=== PATIENT | female | born 1960 ===

== ENCOUNTER 2017-03-07 23:02 | Emergency (ER) | payer OTHER ==
[2017-03-07 23:02] VITALS: BMI 29.8
[2017-03-07] MEDS ORDERED: Albuterol 0.083% Inhal Sol (2.5 mg/3 mL) UD IH STA (23:54)
[2017-03-07] MEDS ORDERED: Albuterol 0.083% Inhal Sol (2.5 mg/3 mL) UD ONE (23:57)
--- NOTE | 2017-03-08 00:16 | C.PDOC ---
History Of Present Illness 56 y/o female presents to the ER c/o left ear swelling and pain for 2 days. Patient notes 2 days ago her ear was itching and applied Cortisporin ear drops. This morning she woke up with swelling to the face. Patient is on Amoxicillin "for the flu" for 1 week -at the time pt had cough, sore throat, and congestion that has since self resolved. Patient is requesting albuterol treatment, stating she feels her asthma is acting up. Denies chest pain, SOB, ear discharge , sore throat, fever, chills, or abdominal pain. Time Seen by Provider: 03/07/17 23:16 Chief Complaint (Nursing): ENT Problem History Per: Patient, Family History/Exam Limitations: None Onset/Duration Of Symptoms: Days (2) Current Symptoms Are (Timing): Still Present Severity: Mild Past Medical History Reviewed: Historical Data, Nursing Documentation, Vital Signs Vital Signs: Last Vital Signs Temp 98.6 F 03/08/17 00:20 Pulse 80 03/08/17 00:20 Resp 18 03/08/17 00:20 BP 142/82 03/08/17 00:20 Pulse Ox 100 03/08/17 01:28 - Medical History PMH: Asthma, Depression (3 years ago), Gastritis Surgical History: ((+) hysterectomy ) - [facility] Procedures ASSIST VAG HYSTER([facility]) (04/28/14) CYSTOSCOPY NEC (04/28/14) LAPAROSCOP UNILAT SALPINGO-OOPHORECTOMY (04/28/14) Family History: States: Unknown Family Hx - Social History Hx Tobacco Use: Yes Hx Alcohol Use: Yes Hx Substance Use: No - Immunization History Hx Tetanus Toxoid Vaccination: No Hx Influenza Vaccination: No Hx Pneumococcal Vaccination: No Review Of Systems Except As Marked, All Systems Reviewed And Found Negative. Constitutional: Negative for: Fever, Chills ENT: Positive for: Ear Pain (Left ear pain and swelling) Cardiovascular: Negative for: Chest Pain Gastrointestinal: Negative for: Abdominal Pain Physical Exam - Physical Exam Appears: Well, Non-toxic, No Acute Distress Skin: Warm, Dry Head: Atraumatic, Normacephalic, No Other (No mastoid tenderness) Eye(s): bilateral: Normal Inspection Ear(s): Bilateral: Normal, Other (NO exudates or erythema) Nose: Normal Oral Mucosa: Moist Teeth: No Tender To Palpation Gingiva: No Swelling Throat: Normal, No Erythema, No Exudate Neck: Normal ROM, Supple Lymphatic: Other ((+) Preauricular swelling and tenderness) Chest: Symmetrical Cardiovascular: Rhythm Regular Respiratory: Normal Breath Sounds, No Rales, No Rhonchi, No Wheezing Neurological/Psych: Oriented x3, Normal Speech, Normal Cognition, Other (NO focal deficit) ED Course And Treatment O2 Sat by Pulse Oximetry: 100 (RA) Pulse Ox Interpretation: Normal Progress Note: Plans: ALbuterol, Amoxicillin, Motrin, Neb treatment. On reassessment, patient is resting comfortably, and is in no acute distress. Asthma has resolved, no SOB, chest apin, or dyspnea. Patient is afebrile at this time. Patient was instructed to follow up with physician/clinic in 1-2 days for further evaluation. Discussed that swelling secondary to lyphadenapathy , pt is instructed to take abx as prescribed and return to ER if symptoms persist or worsen. CAse discussed with Dr Arredondo, agreed upon plan and treatment. Disposition - Disposition Disposition: HOME/ ROUTINE Disposition Time: 00:13 Condition: STABLE Additional Instructions: Follow up with your primary medical doctor or clinic in 2-5 days for further evaluation. Take medications as prescribed. Return to the emergency department at any time if symptoms persist or worsen. Prescriptions: Amoxicillin/Clavulanate [Augmentin 875 MG-125 MG] 1 tab PO BID #14 tab Ibuprofen [Motrin] 600 mg PO Q6 PRN #20 tab PRN Reason: Pain, Mild (1-3) Instructions: Lymphadenopathy (ED) Forms: [employer] (Luxembourgish) Print Language: BRAZILIAN - Clinical Impression Clinical Impression: Preauricular lymphadenopathy - Scribe Statement The provider has reviewed the documentation as recorded by the Scribe Courtney salinas All medical record entries made by the Katharinaibe were at my direction and personally dictated by me. I have reviewed the chart and agree that the record accurately reflects my personal performance of the history, physical exam, medical decision making, and the department course for this patient. I have also personally directed, reviewed, and agree with the discharge instructions and disposition.
[2017-03-08 00:56] VITALS: BP 142/82; PULSE 80; RESP 18; TEMP 98.6
[2017-03-08 01:21] VITALS: O2SAT 100
== END 2017-03-08 00:20 | disposition home or self-care (01) ==
LOC: C.ER 23:02
DX: R59.0 Localized enlarged lymph nodes (principal)

== ENCOUNTER 2017-07-08 22:47 | Emergency (ER) | payer OTHER ==
[2017-07-08 22:47] VITALS: BMI 29.8
--- NOTE | 2017-07-08 23:22 | C.PDOC ---
History Of Present Illness 56 y/o F c PMHx asthma, arthritis p/w L arm pain x today. Patient was in kitchen when she suddenly lost consciousness and awoke on the floor. She now complains of this pain on the proximal L forearm, sharp, nonradiating, worse with movement or palpation, moderate in severity. She denies headache, neck pain , pain elsewhere, dyspnea, chest pain, palpitations, lightheadedness, bleeding, history of CHF. Time Seen by Provider: 07/08/17 23:06 Chief Complaint (Nursing): Upper Extremity Problem/Injury Past Medical History Vital Signs: Last Vital Signs Temp 98.6 F 07/08/17 22:53 Pulse 68 07/08/17 23:45 Resp 16 07/08/17 23:45 BP 150/88 07/08/17 23:45 Pulse Ox 98 07/08/17 23:45 - Medical History PMH: Arthritis, Asthma, Depression (3 years ago), Gastritis Surgical History: ((+) hysterectomy ) - [facility] Procedures ASSIST VAG HYSTER([facility]) (04/28/14) CYSTOSCOPY NEC (04/28/14) LAPAROSCOP UNILAT SALPINGO-OOPHORECTOMY (04/28/14) Family History: States: Unknown Family Hx - Social History Hx Tobacco Use: Yes Hx Alcohol Use: Yes Hx Substance Use: No - Immunization History Hx Tetanus Toxoid Vaccination: No Hx Influenza Vaccination: No Hx Pneumococcal Vaccination: No Review Of Systems Except As Marked, All Systems Reviewed And Found Negative. Constitutional: Negative for: Fever Respiratory: Negative for: Shortness of Breath Physical Exam - Physical Exam Additional Physical Exam Comments: Constitutional: No acute distress. Head: Normocephalic. Atraumatic. Eyes: PERRL. ENT: Moist mucous membranes. Neck: Supple. No midline tenderness. Cardiovascular: Regular rate. Radial pulse 2+ bilaterally. Chest: No tenderness. Respiratory: Clear to auscultation bilaterally. GI: Soft. Nontender. Nondistended. Back: No midline tenderness. Musculoskeletal: Tenderness to L proximal forearm, ulnar aspect, reproducible with elbow ranging. No tenderness to wrist, hand, humerus, shoulder, clavicle. No hip tenderness. FROM x 4. Skin: No rash. Neurologic: Alert, no focal deficit. ED Course And Treatment - Laboratory Results Result Diagrams: 07/08/17 23:30 07/08/17 23:30 O2 Sat by Pulse Oximetry: 100 Medical Decision Making Medical Decision Making: XR to rule out fracture or dislocation. Toradol IM for pain. I advised the patient further observation for syncope, but patient refused. [place] Syncope Rules negative. Will advise f/u with PMD and to return to ED at any time for any worrisome symptoms. Disposition - Disposition Disposition: HOME/ ROUTINE Disposition Time: 00:01 Condition: STABLE Instructions: Syncope (ED), Contusion in Adults (ED) Forms: [employer] (Swazi) - Clinical Impression Clinical Impression: Contusion, Syncope
[2017-07-08 23:34] LABS: BASO # 0.1 K/uL (0.0-0.2); BASO % 1.1 % (0.0-2.0); EOS # 0.2 K/uL (0.0-0.7); EOS % 2.9 % (0.0-4.0); HEMATOCRIT 36.6 % (34.0-47.0); LYMPH # 2.9 K/uL (1.0-4.3); LYMPH % 35.9 % (20.0-40.0); MEAN CELL VOLUME 93.8 fL (81.0-99.0); MEAN CORPUSCULAR HEMOGLOBIN 31.5 pg (27.0-31.0); MEAN CORPUSCULAR HGB CONC 33.6 g/dL (33.0-37.0); MEAN PLATELET VOLUME 8.5 fL (7.2-11.7); MONO # 0.6 K/uL (0.0-0.8); NRBC % 0.1 % (0.0-2.0); RED CELL DISTRIBUTION WIDTH 13.1 % (11.5-14.5); WHITE BLOOD COUNT 8.1 K/uL (4.8-10.8)
[2017-07-08 23:45] LABS: ALB/GLOB RATIO 1.6 (1.0-2.1); ALKALINE PHOSPHATASE 106 U/L (38-126); ALT/SGPT 41 U/L (9-52); AST/SGOT 25 U/L (14-36); BILIRUBIN,TOTAL 0.5 mg/dL (0.2-1.3); BLOOD UREA NITROGEN 18 mg/dL (7-17); CALCIUM 8.6 mg/dl (8.6-10.4); CARBON DIOXIDE 28 mmol/L (22-30); CHLORIDE 105 mmol/L (98-107); GFR AFRICAN-AMERICAN > 60; GLUCOSE,RANDOM 105 mg/dL (65-105); POTASSIUM 3.9 mmol/L (3.6-5.2); SODIUM 140 mmol/L (132-148); TOTAL PROTEIN 6.9 g/dL (6.3-8.3)
[2017-07-09 00:27] VITALS: BP 150/86; PULSE 70; RESP 20; TEMP 97.9; O2SAT 97
--- NOTE | 2017-07-09 09:13 | RAD ---
PROCEDURE: Radiographs of the Left Forearm HISTORY: fall, arm pain COMPARISON: None available. TECHNIQUE: Frontal and lateral views obtained. FINDINGS: BONES: Bone alignment and mineralization are normal. There is no acute displaced fracture or bone destruction. JOINT SPACES: Unremarkable. OTHER FINDINGS: None. IMPRESSION: No acute fracture or dislocation.
--- NOTE | 2017-07-09 09:13 | RAD ---
PROCEDURE: Radiographs of the left elbow. HISTORY: Fall, elbow pain COMPARISON: No prior. FINDINGS: BONES: Bone alignment and mineralization are normal. There is no acute displaced fracture or bone destruction. JOINTS: Normal. No osteoarthritis. SOFT TISSUES: Normal. JOINT EFFUSION: None. OTHER FINDINGS: None IMPRESSION: No acute fracture or dislocation.
--- NOTE | 2017-07-09 22:12 | CARD ---
APPROVED REPORT EKG Measurement Heart [id number] <Conclusion> Normal sinus rhythm Normal ECG
== END 2017-07-09 00:27 | disposition home or self-care (01) ==
LOC: C.ER 22:47
DX: S50.12XA Contusion of left forearm, initial encounter (principal); W18.30XA Fall on same level, unspecified, initial encounter; R55 Syncope and collapse
CPT/HCPCS: 73080; 73090; 80053; 82550; 82553; 84484; 85025; 93005; 96372; 99285; J1885

== ENCOUNTER 2018-11-29 10:30 | Outpatient (CLI) | payer OTHER | END 2018-11-29 10:31 | disposition home or self-care (01) | LOC: C.CTH 10:30 ==